=== PATIENT | female | born 1960 | race Caucasian/White ===

== ENCOUNTER 2017-02-15 13:12 | Emergency (ER) | payer OTHER ==
[~2017-02-15] VITALS: Ht 162.5 cm; Wt 77.1 kg
[~2017-02-15 13:12] MED LIST: ADVAIR 250/501 EA INH; ADVAIR 250/501 EA PO; ALBUTEROL2.5 MG/0.5 INH; AMOXICILLIN500 MG PO; ASPIRIN EC325 MG PO; ATARAX25 MG PO; ATENOLOL25 MG PO; ATIVAN1 MG; ATIVAN1 MG PO; B12,B-12,B 12500 MCG PO; CHOLESTEROL FIG1 CAP PO; CITALOPRAM20 MG PO; CLARITIN10 MG PO; COMPAZINE10 MG PO; COREG3.125 MG PO; DONNATAL1 TAB PO; EFFEXOR XR37.5 MG PO; EFFEXOR XR75 MG PO; EFFEXOR75 MG; EPI EZ PEN1 MG/ML IM; FLAGYL500 MG PO; GEMCOR600 MG PO; GEMFIBROZIL600 MG PO; LIPITOR10 MG PO; LIPITOR20 MG PO; LISINOPRIL2.5 MG PO; LISINOPRIL5 MG PO; MOTRIN800 MG PO; NIASPAN500 MG PO; OMEPRAZOLE40 MG PO; OXYGEN NAS; PREDNICOT20 MG PO; PREDNISONE10 MG PO; PREDNISONE20 MG PO; SPIRIVA -- 3018 MCG; SPIRIVA -- 3018 MCG INH; SPIRIVA -- 3018 MCG PO; SPIRIVA18 MCG IH; TRIMOX500 MG PO; VALIUM10 MG PO; VENTOLIN H0.09 MG/AC INH; VERAPAMIL120 MG PO; VIBRAMYCIN100 MG PO; VICODIN 5/500 505 MG PO; VICODIN 500 MG-1 TAB PO; VISTARIL50 MG PO; Vicodin 5/500 505 MG PO; ZANTAC 300300 MG PO; ZETIA10 MG PO; ZITHROMAX Z PA250 MG PO; Zofran4 MG PO
[2017-02-15 13:30] VITALS: BP 122/71
[2017-02-15] MEDS ORDERED: MACROBID100 M1 PO (13:32)
[2017-02-15 13:52] LABS: BILIRUBIN NEGATIVE (NEGATIVE); BLOOD TRACE-LYSED (NEGATIVE); CLARITY SL CLOUDY (CLEAR); COLOR YELLOW (YELLOW); GLUCOSE NEGATIVE (NEGATIVE); KETONE NEGATIVE (NEGATIVE); LEUKO ESTERASE 2+ (NEGATIVE); NITRITE NEGATIVE (NEGATIVE); PROTEIN NEGATIVE (NEGATIVE); SPECIFIC GRAVITY 1.015 (1.005-1.030); UROBILINOGEN 0.2 E.U./dl (0.2-1.0)
[2017-02-15 13:56] LABS: BASO % 0.2 % (0.0-1.0); EOS # 0.1 10*3/uL (0.0-0.4); EOS % 1.7 % (1.0-4.0); HEMATOCRIT 38.5 % (37.0-47.0); HEMOGLOBIN 12.8 g/dl (12.0-16.0); LYMPH # 3.4 10*3/uL (1.3-4.4); LYMPH % 40.1 % (27.0-41.0); MEAN CORPUSCULAR HGB 30.3 pg (27.0-31.0); MEAN CORPUSCULAR HGB CONC 33.2 g/dl (33.0-37.0); MEAN PLATELET VOLUME 10.4 fl (9.6-12.3); MONO # 0.8 10*3/uL (0.1-1.0); MONO % 9.4 % (3.0-9.0); NEUT % 48.1 % (47.0-73.0); PLATELET COUNT AUTOMATED 256 10*3/uL (130-400); RED BLOOD COUNT 4.23 10*6/uL (4.10-5.10); RED CELL DISTRI WIDTH 13.2 % (0-14.5); WHITE BLOOD COUNT 8.4 10*3/uL (4.8-10.8)
[2017-02-15 14:06] LABS: URINE REFLEX COMMENT YES (NO); WBC 21-30 wbc/hpf (0-5)
[2017-02-15 14:13] LABS: ALBUMIN 3.5 gm/dl (3.1-4.5); ALKALINE PHOSPHATASE 171 U/L (45-117); BILIRUBIN, TOTAL 0.3 mg/dl (0.2-1.0); BUN 11 mg/dl (7-24); CARBON DIOXIDE 27 mmol/L (21-32); CHLORIDE 109 mmol/L (98-107); EST GLOM FILT AFRICAN AMERICAN > 60 ml/min; GLUCOSE 109 mg/dL (65-99); POTASSIUM 4.4 mmol/L (3.5-5.1); SGOT/AST 29 IU/L (3-35); SGPT/ALT 19 U/L (12-78); SODIUM 145 mmol/L (136-145); TOTAL PROTEIN 7.6 gm/dL (6.4-8.2)
[2017-02-15 14:16] LABS: TROPONIN I < 0.015 ng/ml (<0.045)
== END 2017-02-15 14:36 | disposition home or self-care (01) ==
LOC: ED 13:12
PROVIDERS: Student in an Organized Health Care Education/Training Program
DX: N39.0 Urinary tract infection, site not specified (principal); I48.91 Unspecified atrial fibrillation; F17.200 Nicotine dependence, unspecified, uncomplicated; Z88.2 Allergy status to sulfonamides; Z88.1 Allergy status to other antibiotic agents; Z79.82 Long term (current) use of aspirin; Z79.899 Other long term (current) drug therapy

== ENCOUNTER 2017-09-07 03:43 | Emergency (ER) | payer OTHER ==
[~2017-09-07] VITALS: Ht 162.5 cm; Wt 99.8 kg
[~2017-09-07 03:43] MED LIST changes: +MACROBID100 M1 PO
[2017-09-07 03:45] VITALS: BP 119/79
[2017-09-07 04:18] LABS: BASO % 0.2 % (0.0-1.0); EOS # 0.2 10*3/uL (0.0-0.4); EOS % 2.1 % (1.0-4.0); HEMATOCRIT 37.5 % (37.0-47.0); HEMOGLOBIN 12.4 g/dl (12.0-16.0); LYMPH # 3.8 10*3/uL (1.3-4.4); LYMPH % 42.2 % (27.0-41.0); MEAN CELL VOLUME 90.1 fl (81.0-99.0); MEAN CORPUSCULAR HGB 29.8 pg (27.0-31.0); MEAN CORPUSCULAR HGB CONC 33.1 g/dl (33.0-37.0); MEAN PLATELET VOLUME 10.7 fl (9.6-12.3); MONO # 0.8 10*3/uL (0.1-1.0); MONO % 8.5 % (3.0-9.0); NEUT # 4.2 10*3/uL (2.3-7.9); NEUT % 46.6 % (47.0-73.0); PLATELET COUNT AUTOMATED 205 10*3/uL (130-400); RED BLOOD COUNT 4.16 10*6/uL (4.10-5.10); WHITE BLOOD COUNT 9.1 10*3/uL (4.8-10.8)
[2017-09-07 04:41] LABS: ALBUMIN 3.1 gm/dl (3.1-4.5); ALKALINE PHOSPHATASE 147 U/L (45-117); BUN 18 mg/dl (7-24); CHLORIDE 110 mmol/L (98-107); CREATININE 0.85 mg/dL (0.55-1.02); POTASSIUM 3.5 mmol/L (3.5-5.1); SGOT/AST 19 IU/L (3-35); SGPT/ALT 15 U/L (12-78); SODIUM 143 mmol/L (136-145); TOTAL PROTEIN 7.1 gm/dL (6.4-8.2)
[2017-09-07 04:43] LABS: TROPONIN I < 0.015 ng/ml (<0.045)
== END 2017-09-07 06:13 | disposition home or self-care (01) ==
LOC: ED 03:43
PROVIDERS: Student in an Organized Health Care Education/Training Program
DX: F41.9 Anxiety disorder, unspecified (principal); Z98.51 Tubal ligation status; Z90.711 Acquired absence of uterus with remaining cervical stump; Z79.82 Long term (current) use of aspirin; Z79.899 Other long term (current) drug therapy; Z88.2 Allergy status to sulfonamides; Z88.1 Allergy status to other antibiotic agents

== ENCOUNTER 2018-06-15 22:44 | Inpatient (IN) | payer OTHER ==
[~2018-06-15] VITALS: Ht 160 cm; Wt 72.2 kg
--- NOTE | ~2018-06-15 | PR ---
[place], [place] PROGRESS NOTE NAME: NAILA AYALA UNIT #: [id number] ROOM: 427 DOCTOR: GAGE VIGIL MD,DOM BIRTHDATE: [birth year] DOS: 06/17/2018 SUBJECTIVE: She continued to show improvement and reduction of respiratory symptoms, ambulating with decreased symptom of shortness of breath, cough and wheezing have been all improving. There were no symptoms of chest pain or fever. OBJECTIVE: VITAL SIGNS: Normal temperature, respiratory rate 17, heart rate 110, mild sinus tachycardia, blood pressure 108/68. Pulse oxygen saturation on 3 liters 95% saturation. HEENT: No acute change. NECK: Supple. CARDIOVASCULAR: S1, S2 audible. LUNGS: The patient was noted without any crackles. Scattered expiratory wheezing. No crackles. ABDOMEN: Soft, nontender. EXTREMITIES: Without any acute edema. IMPRESSION: Progressive resolution of the acute exacerbation of chronic obstructive pulmonary disease/bronchial asthma, and history of chronic hypoxic respiratory failure. PLAN OF TREATMENT: The patient has been reassessed for the need of oxygen supplementation calibration. With the walk test of the patient, she was able to maintain the oxygen supplementation 3 liters nasal cannula with pulse ox at 90% or greater. She will be discharged home to continue use of oxygen. Tapering dose of antibiotics. Continue abstinence of tobacco use will be encouraged. Outpatient followup to be established for the patient after the hospital discharge for a couple of weeks. DOM ALMONTE MD CM:PNTRANS [id number] DOM VIGIL MD 06/25/18 1013 interface
--- NOTE | ~2018-06-15 | CON ---
[place], [place] REPORT OF CONSULTATION NAME: NAILA AYALA UNIT #: [id number] ROOM: 427 DOCTOR: GAGE VIGIL MDDOM BIRTHDATE: [birth year] DOS: 06/16/2018 CONSULTATION REQUESTED BY: Hospitalist service. REASON FOR CONSULTATION: Assessment of current acute exacerbation of chronic obstructive pulmonary disease. HISTORY OF PRESENT ILLNESS: A 57-year-old white female known to me with history of end-stage chronic obstructive pulmonary disease, chronic hypoxic respiratory failure, and chronic obstructive pulmonary disease. The patient presented to the Emergency Room and the patient noted with increased respiratory symptoms, which has been developed for the last 24 hours. The patient admitted symptoms of having increased chest congestion, coughing, wheezing, and shortness of breath. The patient was also noted the pain, which he described across the chest with the current symptom. She felt lightheadedness. She started with symptoms sneezing as well, but denies any sore throat. She came into the Emergency Room where she has been assessed and currently admitted to the hospital for acute exacerbation of chronic obstructive pulmonary disease. The cough has been noted [id number], nonproductive. The wheezing has been noted somewhat decreased this morning of assessment. Shortness of breath occurs with exertion. REVIEW OF SYSTEMS: CONSTITUTIONAL: Fatigue and tiredness noted without any symptoms of fever or chills. EYES: Denies burning, redness, or tenderness. EARS, NOSE, THROAT SYMPTOMS: Denies sore throat, hoarseness, otalgia, postnasal drainage or epistaxis. CARDIOVASCULAR: No anginal pain, edema, or pain in lower extremity. GASTROINTESTINAL: Denies dysphagia, nausea, vomiting, diarrhea, abdominal pain, hematemesis, melena, hematochezia. SKIN: Denies abnormal lesions or rashes. GENITOURINARY SYMPTOMS: Denies urinary incontinence, hematuria, suprapubic pain. MUSCULOSKELETAL: No acute joint pain, redness, or tenderness. CENTRAL NERVOUS SYSTEM: Denies any dizziness, headache, diplopia, syncopal episodes. Remaining systems were reviewed. They were noted all negative. PAST MEDICAL HISTORY: Known with history of: 1. Hypercholesterolemia. 2. Chronic obstructive pulmonary disease. 3. Uncomplicated severe persistent bronchial asthma. 4. Gastroesophageal reflux. 5. Hyperlipidemia. 6. Partial hearing loss. 7. General anxiety disorder. 8. History of chronic hypoxic respiratory failure, use of oxygen supplementation 3 liters with exertion and sleep. [place], [place] REPORT OF CONSULTATION NAME: NAILA AYALA UNIT #: [id number] ROOM: 427 DOCTOR: DOM FAGAN MD BIRTHDATE: [birth year] PAST SURGICAL HISTORY: 1. Noted that include D and C. 2. Partial mastectomy noncancerous. 3. The patient with partial hysterectomy. 4. Cholecystectomy. 5. Right knee arthroscopy. SOCIAL HISTORY: The patient is currently . Lives at home. She has been noted with history of tobacco use with a pack of cigarettes per day that has been discontinued in 04/2018. Denies any alcohol or illicit drug use. FAMILY HISTORY: The patient's father at the age of 65-year-old, unknown medical illnesses. Mother at the age of 63 with complication of sepsis with history of diabetes mellitus. HOME MEDICATIONS: Noted as Ventolin HFA inhaler, aspirin, Lipitor, Coreg, diazepam, Zetia, Breo Ellipta, gemfibrozil, hydroxyzine, lisinopril, niacin, omeprazole, oxygen supplementation 3 liters nasal cannula, and verapamil. ALLERGIES: NOTED ALLERGIES TO THE FLUOROQUINOLONES AND BACTRIM. PHYSICAL EXAMINATION: GENERAL: A 57-year-old female who noted currently awake and alert without any acute distress, sitting on the bed this morning of assessment. Height of 5 feet 3 inches, weight 159 pounds, BMI 28. VITAL SIGNS: Normal temperature since admission, respiratory rate 17-23, heart rate 104-160, mild sinus tachycardia, blood pressure 98/51-120/71. The pulse ox saturation on 3 liters nasal cannula 94% at rest on room air for patient 90% on admission. HEENT: Examination shows head was atraumatic. Eyes nonicterus. NECK: Supple. CARDIOVASCULAR: S1, S2 audible. LUNGS: Noted with decreased breath sounds bilaterally with expiratory wheezing without any crackles. ABDOMEN: Soft and nontender. Bowel sounds present. EXTREMITIES: Without any acute edema. MUSCULOSKELETAL: Without any acute deformities. CENTRAL NERVOUS SYSTEM: The patient's cranial nerves 2-12 intact. LABORATORY DATA: The patient's CBC that was done on 06/15/2018 was noted as normal. The lactic acid noted 1.7 in the emergency room yesterday. CMP in the emergency room, glucose 136. Normal BUN and creatinine and other normal electrolytes and LFTs. Troponin, second and third set today were noted normal. CMP of the patient this morning, glucose 193. Remaining CMP was normal. CBC remains normal. The chest x-ray one-view, which was done in the Emergency Room shows hyperinflation changes without any acute pulmonary infiltration. IMPRESSION: 1. The patient will be currently admitted to the hospital with chronic hypoxic [place], [place] REPORT OF CONSULTATION NAME: NAILA AYALA UNIT #: [id number] ROOM: 427 DOCTOR: GAGE VIGIL MD,DOM BIRTHDATE: [birth year] respiratory failure, acute exacerbation of chronic obstructive pulmonary disease uncomplicated severe, persistent bronchial asthma with possibility of bronchitis, could be viral in origin. 2. The patient with hyperglycemia related to corticosteroids. 3. Recent tobacco cessation after a long time, PLAN OF MANAGEMENT: Continuation of oxygen supplementation, bronchodilators, current dose of corticosteroids 40 mg 8 hours. Bronchodilators administration. Reassess the patient tomorrow morning. No change in other medical management. Empirical antibiotic until the infection is excluded as the bacterial cause. DOM ALMONTE MD CM:CONSTR:REPORT OF CONSULTATION 1450 06/25/18 1012 interface
--- NOTE | ~2018-06-15 | EKG ---
[place], [place] ELECTROCARDIOGRAM REPORT NAME: NAILA AYALA UNIT #: [id number] ROOM: 427 DOCTOR: GUICHO DRAFT REPORT BIRTHDATE: [birth year] [facility] Test Date: 2018-06-15 Test Time: 23:17:25 Pat Name: NAILA AYALA Department: ER Room: 427 Gender: F Shank Skinner: : 1960 Requested By: FRANCISCO JAVIER CHAVEZ Order Number: [id number] Reading MD: Carmina Rodríguez MD Measurements Intervals [place] Rate: 94 P: 84 NV: 138 QRS: 85 QRSD: 96 T: 62 QT: 380 QTc: 476 Interpretive Statements Sinus rhythm Minimal ST elevation, inferior leads Electronically Signed On 06-18-2018 13:26:57 PDT by Carmina Rodríguez MD CM:EKGRPT:ELECTROCARDIOGRAM REPORT [id number] FRANCISCO JAVIER CHAVEZ MD EPIPHANY DRAFT REPORT FRANCISCO JAVIER CHAVEZ MD
--- NOTE | ~2018-06-15 | EKG ---
[place], [place] ELECTROCARDIOGRAM REPORT NAME: NAILA AYALA UNIT #: [id number] ROOM: 427 DOCTOR: GUICHO DRAFT REPORT BIRTHDATE: [birth year] [facility] Test Date: 2018-06-16 Test Time: 01:49:12 Pat Name: NAILA AYALA Department: Room: 427 1 Gender: F Campus Chaplain: EKG.IA : 1960 Requested By: SAM CARTER Order Number: [id number] Reading MD: Carmina Rodríguez MD Measurements Intervals [place] Rate: 96 P: 86 NM: 148 QRS: 80 QRSD: 97 T: 65 QT: 383 QTc: 484 Interpretive Statements Sinus rhythm Baseline wander in lead(s) I,II,aVR,aVL,aVF,V2 Electronically Signed On 06-18-2018 13:28:47 PDT by Carmina Rodríguez MD CM:EKGRPT:ELECTROCARDIOGRAM REPORT [id number] SAM STEWART DRAFT REPORT SAM CARTER DO
--- NOTE | ~2018-06-15 | EKG ---
[place], [place] ELECTROCARDIOGRAM REPORT NAME: NAILA AYALA UNIT #: [id number] ROOM: 427 DOCTOR: GUICHO DRAFT REPORT BIRTHDATE: [birth year] [facility] Test Date: 2018-06-16 Test Time: 04:44:56 Pat Name: NAILA AYALA Department: 4E Room: 427 1 Gender: F Tank Builder Supervisor: Benny Stone : 1960 Requested By: SAM CARTER Order Number: [id number] Reading MD: Carmina Rodríguez MD Measurements Intervals [place] Rate: 104 P: 78 ID: 135 QRS: 83 QRSD: 103 T: 65 QT: 376 QTc: 495 Interpretive Statements Sinus tachycardia Borderline prolonged QT interval Baseline wander in lead(s) V1 Electronically Signed On 06-18-2018 13:28:55 PDT by Carmina Rodríguez MD CM:EKGRPT:ELECTROCARDIOGRAM REPORT [id number] 1328 [facility] STEWART DRAFT REPORT SAM CARTER DO
[2018-06-15 22:44] VITALS: BP 122/63
[2018-06-15] MEDS ORDERED: BREO ELLIPTA 21 EACH INH (23:00)
[2018-06-15 23:26] LABS: BASO % 0.2 % (0.0-1.0); EOS # 0.2 10*3/uL (0.0-0.4); EOS % 1.7 % (1.0-4.0); HEMATOCRIT 39.2 % (37.0-47.0); LYMPH # 3.6 10*3/uL (1.3-4.4); LYMPH % 36.8 % (27.0-41.0); MEAN CELL VOLUME 89.5 fl (81.0-99.0); MEAN CORPUSCULAR HGB 29.7 pg (27.0-31.0); MEAN CORPUSCULAR HGB CONC 33.2 g/dl (33.0-37.0); MEAN PLATELET VOLUME 11.1 fl (9.6-12.3); MONO # 0.7 10*3/uL (0.1-1.0); MONO % 7.2 % (3.0-9.0); NEUT # 5.3 10*3/uL (2.3-7.9); NEUT % 53.9 % (47.0-73.0); PLATELET COUNT AUTOMATED 222 10*3/uL (130-400); RED BLOOD COUNT 4.38 10*6/uL (4.10-5.10); RED CELL DISTRI WIDTH 12.8 % (0-14.5); WHITE BLOOD COUNT 9.9 10*3/uL (4.8-10.8)
[2018-06-15 23:43] LABS: ALBUMIN 3.5 gm/dl (3.1-4.5); ALKALINE PHOSPHATASE 148 U/L (45-117); BUN 11 mg/dl (7-24); CHLORIDE 108 mmol/L (98-107); CREATININE 0.85 mg/dL (0.55-1.02); POTASSIUM 3.7 mmol/L (3.5-5.1); SGOT/AST 24 IU/L (3-35); SGPT/ALT 18 U/L (12-78); SODIUM 143 mmol/L (136-145); TOTAL PROTEIN 7.3 gm/dL (6.4-8.2)
[2018-06-15 23:44] LABS: TROPONIN I < 0.015 ng/ml (<0.045)
[2018-06-15 23:54] LABS: BILIRUBIN NEGATIVE (NEGATIVE); BLOOD NEGATIVE (NEGATIVE); CLARITY CLEAR (CLEAR); COLOR YELLOW (YELLOW); GLUCOSE NEGATIVE (NEGATIVE); KETONE NEGATIVE (NEGATIVE); LEUKO ESTERASE 2+ (NEGATIVE); NITRITE NEGATIVE (NEGATIVE); SPECIFIC GRAVITY <= 1.005 (1.005-1.030); UROBILINOGEN 0.2 E.U./dl (0.2-1.0)
[2018-06-16 00:11] LABS: RBC 0-2 rbc/hpf (0-2); WBC 21-30 wbc/hpf (0-5)
[2018-06-16 01:18] VITALS: BP 120/7; BP 120/71
[2018-06-16 01:35] VITALS: BP 104/70
[2018-06-16 05:54] LABS: BASO % 0.1 % (0.0-1.0); EOS % 0.1 % (1.0-4.0); HEMATOCRIT 38.5 % (37.0-47.0); HEMOGLOBIN 12.7 g/dl (12.0-16.0); LYMPH # 0.9 10*3/uL (1.3-4.4); LYMPH % 12.5 % (27.0-41.0); MEAN CELL VOLUME 91.2 fl (81.0-99.0); MEAN CORPUSCULAR HGB 30.1 pg (27.0-31.0); MEAN PLATELET VOLUME 11.5 fl (9.6-12.3); MONO # 0.1 10*3/uL (0.1-1.0); MONO % 1.3 % (3.0-9.0); NEUT # 6.2 10*3/uL (2.3-7.9); NEUT % 85.4 % (47.0-73.0); PLATELET COUNT AUTOMATED 194 10*3/uL (130-400); RED BLOOD COUNT 4.22 10*6/uL (4.10-5.10); RED CELL DISTRI WIDTH 12.8 % (0-14.5); WHITE BLOOD COUNT 7.2 10*3/uL (4.8-10.8)
[2018-06-16 05:55] LABS: ALBUMIN 3.2 gm/dl (3.1-4.5); ALKALINE PHOSPHATASE 140 U/L (45-117); BUN 10 mg/dl (7-24); CHLORIDE 110 mmol/L (98-107); CHOLESTEROL 132 mg/dL (<200); CREATININE 0.86 mg/dL (0.55-1.02); HDL CHOLESTEROL 36 mg/dl (40-60); LDL CHOLESTEROL 84 mg/dL (9-159); PHOSPHOROUS 3.4 mg/dL (2.5-4.9); SGOT/AST 19 IU/L (3-35); SGPT/ALT 17 U/L (12-78); SODIUM 144 mmol/L (136-145); TOTAL PROTEIN 7.2 gm/dL (6.4-8.2); TRIGLYCERIDES 61 mg/dl (<150); VLDL CHOLESTEROL 12 mg/dL (6-40)
[2018-06-16 06:57] LABS: VITAMIN D, 25-HYDROXY 24.1 ng/mL (30-100)
[2018-06-16 08:18] VITALS: BP 106/66
[2018-06-16 12:00] VITALS: BP 98/51
[2018-06-16 16:00] VITALS: BP 123/62
[2018-06-16 20:00] VITALS: BP 117/58
[2018-06-17] VITALS: BP 116/65
[2018-06-17 08:00] VITALS: BP 107/63
[2018-06-17 08:01] VITALS: BP 108/68
[2018-06-17] MEDS ORDERED: AVPAK AZITHROM250 M1 PO (10:18)
[2018-06-17] MEDS ORDERED: PREDNISONE10 MG PO (10:18)
[2018-06-17] MEDS ORDERED: VITAMIN D-32000 UNIT PO (10:18)
== END 2018-06-17 13:30 | disposition home or self-care (01) | DRG 871 ==
LOC: ED 22:44 → EDHOLD 06-16 00:32 → 4E 06-16 00:37
PROVIDERS: Emergency Medicine Emergency Medical Services; Internal Medicine
DX: A41.9 Sepsis, unspecified organism (principal); J96.21 Acute and chronic respiratory failure with hypoxia; J44.1 Chronic obstructive pulmonary disease with (acute) exacerbation; E11.65 Type 2 diabetes mellitus with hyperglycemia; F41.9 Anxiety disorder, unspecified; E78.5 Hyperlipidemia, unspecified; I10 Essential (primary) hypertension; F17.210 Nicotine dependence, cigarettes, uncomplicated; I70.90 Unspecified atherosclerosis; T38.0X5A Adverse effect of glucocorticoids and synthetic analogues, initial encounter; K21.9 Gastro-esophageal reflux disease without esophagitis; E53.8 Deficiency of other specified B group vitamins; H70.13 Chronic mastoiditis, bilateral; H91.93 Unspecified hearing loss, bilateral; K59.09 Other constipation; Z90.49 Acquired absence of other specified parts of digestive tract; Z90.710 Acquired absence of both cervix and uterus; Z90.10 Acquired absence of unspecified breast and nipple; Z88.2 Allergy status to sulfonamides; Z88.1 Allergy status to other antibiotic agents; Z79.82 Long term (current) use of aspirin; Z79.51 Long term (current) use of inhaled steroids; Z79.899 Other long term (current) drug therapy; Z99.81 Dependence on supplemental oxygen; Z83.3 Family history of diabetes mellitus; Z83.2 Family history of diseases of the blood and blood-forming organs and certain disorders involving the immune mechanism; Y92.89 Other specified places as the place of occurrence of the external cause

== ENCOUNTER 2019-04-09 18:08 | Emergency (ER) | payer OTHER ==
[~2019-04-09] VITALS: Ht 160 cm; Wt 72.6 kg
[~2019-04-09 18:08] MED LIST changes: +ATORVASTATIN CA20 M1 PO; +AVPAK AZITHROM250 M1 PO; +B COMPLEX1 EACH PO; +BREO ELLIPTA 11 EACH PO; +BREO ELLIPTA 21 EACH INH; +GOOD NEIGHBOR L10 MG PO; +LEADER ASPIRIN325 MG PO; +PANTOPRAZOLE SO40 MG PO; +PROVENTIL HFA6.7 GM INH; +SENEXON-S TABL1 EACH PO; +TAB-A-VITE1 EACH PO; +VENTOLIN 02.5 MG/3 M INH; +VITAMIN D-32000 UNIT PO; +VITAMIN D31000 UNIT PO
[2019-04-09 18:09] VITALS: BP 116/72
== END 2019-04-09 21:07 | disposition home or self-care (01) ==
LOC: ED 18:08
DX: S80.12XA Contusion of left lower leg, initial encounter (principal); S80.11XA Contusion of right lower leg, initial encounter; Z87.891 Personal history of nicotine dependence; Z79.899 Other long term (current) drug therapy; Z79.82 Long term (current) use of aspirin; Z88.2 Allergy status to sulfonamides; Z88.1 Allergy status to other antibiotic agents; W01.0XXA Fall on same level from slipping, tripping and stumbling without subsequent striking against object, initial encounter; Y93.89 Activity, other specified; Y92.89 Other specified places as the place of occurrence of the external cause; Y99.8 Other external cause status

== ENCOUNTER → 2019-05-27 | Outpatient (CLI) | payer OTHER | END | disposition home or self-care (01) | LOC: CT 01:08 | DX: H72.93 Unspecified perforation of tympanic membrane, bilateral (principal) ==

== ENCOUNTER 2019-09-21 14:55 | Inpatient (IN) | payer OTHER ==
[~2019-09-21] VITALS: Ht 160 cm; Wt 70.4 kg
[~2019-09-21 14:55] MED LIST changes: -ATORVASTATIN CA20 M1 PO; +LIPITOR40 MG PO
[2019-09-21 15:08] VITALS: BP 104/69
[2019-09-21 16:01] LABS: BASO % 0.3 % (0.0-1.0); EOS # 0.2 10*3/uL (0.0-0.4); EOS % 2.5 % (1.0-4.0); HEMATOCRIT 41.9 % (37.0-47.0); HEMOGLOBIN 13.5 g/dl (12.0-16.0); LYMPH # 2.8 10*3/uL (1.3-4.4); LYMPH % 41.2 % (27.0-41.0); MEAN CELL VOLUME 92.7 fl (81.0-99.0); MEAN CORPUSCULAR HGB 29.9 pg (27.0-31.0); MEAN CORPUSCULAR HGB CONC 32.2 g/dl (33.0-37.0); MEAN PLATELET VOLUME 10.8 fl (9.6-12.3); MONO # 0.6 10*3/uL (0.1-1.0); MONO % 8.8 % (3.0-9.0); NEUT # 3.1 10*3/uL (2.3-7.9); NEUT % 47.1 % (47.0-73.0); PLATELET COUNT AUTOMATED 253 10*3/uL (130-400); RED BLOOD COUNT 4.52 10*6/uL (4.10-5.10); RED CELL DISTRI WIDTH 12.7 % (0-14.5); WHITE BLOOD COUNT 6.7 10*3/uL (4.8-10.8)
[2019-09-21 16:13] LABS: ACT PARTIAL THROMBO TIME 26.8 SECONDS (20.0-32.1)
[2019-09-21 16:30] LABS: ALBUMIN 3.2 gm/dl (3.1-4.5); ALKALINE PHOSPHATASE 121 U/L (45-117); BUN 10 mg/dl (7-24); CHLORIDE 112 mmol/L (98-107); CREATININE 0.75 mg/dL (0.55-1.02); POTASSIUM 3.4 mmol/L (3.5-5.1); SGOT/AST 30 IU/L (3-35); SGPT/ALT 18 U/L (12-78); SODIUM 145 mmol/L (136-145)
[2019-09-21 16:35] LABS: TROPONIN I < 0.015 ng/ml (<0.045)
[2019-09-21 17:45] VITALS: BP 113/70
[2019-09-21 18:30] VITALS: BP 123/65
--- NOTE | 2019-09-21 18:40 | NUR ---
Attempted to call [facility] for med list. Pt states she gave list to in ER. I spoke with Lisa in ER and she states she never saw a list. Catherine buitrago is closed. Reviewed what meds I could with pt but there were several she was unsure if she takes or not, and unsure of doseages of some of meds she knows she takes.
--- NOTE | 2019-09-21 18:41 | NUR ---
[facility] 59, admitted to , under the services of LUCA Pappas DO with a diagnosis of PNEUMONIA. Chief complaint is SOB. Patient arrived via bed from ER. Monitor applied. Initial assessment completed. Vital signs taken and recorded. LUCA PAPPAS DO notified of admission to the unit. Orders received. See assessment for past medical history, medications and allergies. Patient and/or family oriented to unit. [facility]. Clothing/patient valuable form completed. LUCERO AGUIRRE
--- NOTE | 2019-09-21 19:59 | NUR ---
DR. ALMONTE NOTIFIED OF CONSULT FOR PNEUMONIA.
[2019-09-21 20:00] VITALS: BP 118/65
--- NOTE | 2019-09-21 23:09 | NUR ---
Educated patient on flutter. Patient performs independently with good effort.
[2019-09-22] VITALS: BP 112/66
[2019-09-22 07:03] LABS: BASO % 0.1 % (0.0-1.0); HEMATOCRIT 42.3 % (37.0-47.0); HEMOGLOBIN 13.4 g/dl (12.0-16.0); LYMPH # 1.3 10*3/uL (1.3-4.4); LYMPH % 16.7 % (27.0-41.0); MEAN CELL VOLUME 91.2 fl (81.0-99.0); MEAN CORPUSCULAR HGB 28.9 pg (27.0-31.0); MEAN CORPUSCULAR HGB CONC 31.7 g/dl (33.0-37.0); MEAN PLATELET VOLUME 10.9 fl (9.6-12.3); MONO # 0.3 10*3/uL (0.1-1.0); MONO % 3.3 % (3.0-9.0); NEUT # 6.2 10*3/uL (2.3-7.9); NEUT % 79.3 % (47.0-73.0); PLATELET COUNT AUTOMATED 274 10*3/uL (130-400); RED BLOOD COUNT 4.64 10*6/uL (4.10-5.10); RED CELL DISTRI WIDTH 12.3 % (0-14.5); WHITE BLOOD COUNT 7.8 10*3/uL (4.8-10.8)
[2019-09-22 07:14] LABS: ACT PARTIAL THROMBO TIME 26.2 SECONDS (20.0-32.1)
[2019-09-22 07:19] LABS: ALBUMIN 3.3 gm/dl (3.1-4.5); ALKALINE PHOSPHATASE 121 U/L (45-117); BUN 9 mg/dl (7-24); CHLORIDE 110 mmol/L (98-107); CHOLESTEROL 170 mg/dL (<200); CREATININE 0.75 mg/dL (0.55-1.02); HDL CHOLESTEROL 41 mg/dl (40-60); LDL CHOLESTEROL 109 mg/dL (9-159); PHOSPHOROUS 2.7 mg/dL (2.5-4.9); POTASSIUM 3.8 mmol/L (3.5-5.1); SGOT/AST 23 IU/L (3-35); SGPT/ALT 16 U/L (12-78); SODIUM 141 mmol/L (136-145); TOTAL PROTEIN 7.2 gm/dL (6.4-8.2); TRIGLYCERIDES 98 mg/dl (<150); VLDL CHOLESTEROL 20 mg/dL (6-40)
[2019-09-22 07:23] LABS: THYROID STIM HORMONE (HS) 0.195 uIU/ml (0.358-4.75)
--- NOTE | 2019-09-22 07:30 | NUR ---
PT RESTING IN BED. VOICES NO CONCERNS AT THIS TIME. NO S/S OF DISTRESS NOTED. RESPS EASY AND NON LABORED. OXYGEN 3L VIA NASAL CANNULA INTACT. WHITE BOARD UPDATED. CALL LIGHT WITHIN REACH.
[2019-09-22 08:00] VITALS: BP 118/70
[2019-09-22 09:02] LABS: VITAMIN D, 25-HYDROXY 25.2 ng/mL (30-100)
--- NOTE | 2019-09-22 10:15 | NUR ---
[employer]qu[employer] Assistant Department Head in to talk to patient. Patient states lives at HOME with ALONE. There are 2 OUTSIDE steps in the home. Physician: EVANGELIST Pharmacy: [facility] Home health services: NONE Patient's level of ADLs: INDEPENDENT Patient has working utilities: YES DME: OXYGEN, CONCENTRATOR, NEBULIZER Follow-up physician's appointment after d/c: WILL BE MADE BY HOSPITALIST NURSE DIRECTOR ON DISCHARGE Does patient want to access PORTAL?: NO Discharge plan PT LIVES AT HOME ALONE AND IS INDEPENDENT IN HER CARE. DENIES SHE WILL HAVE NEEDS AT DISCHARGE. PLAN IS TO RETURN HOME WHEN MEDICALLY STABLE. WILL CONTINUE TO FOLLOW. STATES SHE WILL HAVE A RIDE HOME.. CHANDU BAKER
--- NOTE | 2019-09-22 11:11 | NUR ---
BLOOD SUGAR 239. COVERAGE GIVEN PER SLIDING SCALE
--- NOTE | 2019-09-22 11:20 | NUR ---
Shift chart check completed.
[2019-09-22 12:00] VITALS: BP 120/68
[2019-09-22] MEDS ORDERED: ZITHROMAX500 MG PO (13:05)
--- NOTE | 2019-09-22 14:39 | NUR ---
Discharge instructions reviewed with patient/family. Patient receptive and verbalizes understanding. Follow-up care arranged. Written instructions given to patient/family. HISSOM,RENALDO The Discharge Plan/Instructions have been completed.
== END 2019-09-22 14:44 | disposition home or self-care (01) | DRG 133 ==
LOC: ED 14:55 → EDHOLD 17:26 → 4E 18:21
PROVIDERS: Internal Medicine; ADMIT Internal Medicine
DX: J96.21 Acute and chronic respiratory failure with hypoxia (principal); J44.1 Chronic obstructive pulmonary disease with (acute) exacerbation; E87.8 Other disorders of electrolyte and fluid balance, not elsewhere classified; K59.09 Other constipation; K21.9 Gastro-esophageal reflux disease without esophagitis; I10 Essential (primary) hypertension; E78.5 Hyperlipidemia, unspecified; E78.00 Pure hypercholesterolemia, unspecified; F41.1 Generalized anxiety disorder; J20.9 Acute bronchitis, unspecified; E11.65 Type 2 diabetes mellitus with hyperglycemia; T38.0X5A Adverse effect of glucocorticoids and synthetic analogues, initial encounter; E87.6 Hypokalemia; I70.90 Unspecified atherosclerosis; Y92.89 Other specified places as the place of occurrence of the external cause; Z87.891 Personal history of nicotine dependence; Z90.49 Acquired absence of other specified parts of digestive tract; Z90.710 Acquired absence of both cervix and uterus; Z90.10 Acquired absence of unspecified breast and nipple; Z83.3 Family history of diabetes mellitus; Z82.0 Family history of epilepsy and other diseases of the nervous system; Z88.1 Allergy status to other antibiotic agents; Z88.2 Allergy status to sulfonamides; Z79.899 Other long term (current) drug therapy; Z79.82 Long term (current) use of aspirin; Z99.81 Dependence on supplemental oxygen

== ENCOUNTER → 2019-11-25 | Outpatient (CLI) | payer OTHER ==
[~2019-11-25] MED LIST changes: +ZITHROMAX500 MG PO
[2019-11-25 10:22] LABS: BASO % 0.4 % (0.0-1.0); EOS # 0.3 10*3/uL (0.0-0.4); EOS % 3.4 % (1.0-4.0); HEMATOCRIT 44.8 % (37.0-47.0); HEMOGLOBIN 14.4 g/dl (12.0-16.0); LYMPH # 2.7 10*3/uL (1.3-4.4); LYMPH % 36.1 % (27.0-41.0); MEAN CORPUSCULAR HGB 29.6 pg (27.0-31.0); MEAN CORPUSCULAR HGB CONC 32.1 g/dl (33.0-37.0); MEAN PLATELET VOLUME 11.5 fl (9.6-12.3); MONO # 0.6 10*3/uL (0.1-1.0); MONO % 7.8 % (3.0-9.0); NEUT # 3.9 10*3/uL (2.3-7.9); PLATELET COUNT AUTOMATED 261 10*3/uL (130-400); RED BLOOD COUNT 4.87 10*6/uL (4.10-5.10); RED CELL DISTRI WIDTH 12.9 % (0-14.5); WHITE BLOOD COUNT 7.6 10*3/uL (4.8-10.8)
[2019-11-25 10:50] LABS: ALBUMIN 3.5 gm/dl (3.1-4.5); BUN 9 mg/dl (7-24); CHLORIDE 107 mmol/L (98-107); GAMMA GLUTAMYL TRANSPEPTIDASE 11 U/L (5-55); POTASSIUM 3.6 mmol/L (3.5-5.1); SODIUM 142 mmol/L (136-145)
[2019-11-25 10:53] LABS: FERRITIN 64.8 ng/mL (10.0-291.0); VITAMIN D, 25-HYDROXY 25.4 ng/mL (30-100)
[2019-11-25 11:03] LABS: ALKALINE PHOSPHATASE 149 U/L (45-117); CHOLESTEROL 141 mg/dL (<200); CPK 45 U/L (26-192); CREATININE 0.83 mg/dL (0.55-1.02); HDL CHOLESTEROL 34 mg/dl (40-60); IRON 77 ug/dL (50-170); LDL CHOLESTEROL 71 mg/dL (9-159); SGOT/AST 19 IU/L (3-35); SGPT/ALT 16 U/L (12-78); THYROID STIM HORMONE (HS) 0.965 uIU/ml (0.358-4.75); TOTAL IRON BINDING CAPACITY 408 ug/dl (250-450); TOTAL PROTEIN 7.6 gm/dL (6.4-8.2); TRIGLYCERIDES 180 mg/dl (<150); VLDL CHOLESTEROL 36 mg/dL (6-40)
[2019-11-25 12:46] LABS: BILIRUBIN NEGATIVE (NEGATIVE); BLOOD NEGATIVE (NEGATIVE); CLARITY SL CLOUDY (CLEAR); COLOR YELLOW (YELLOW); GLUCOSE NEGATIVE (NEGATIVE); KETONE NEGATIVE (NEGATIVE); LEUKO ESTERASE 1+ (NEGATIVE); NITRITE NEGATIVE (NEGATIVE); SPECIFIC GRAVITY 1.015 (1.005-1.030); UROBILINOGEN 0.2 E.U./dl (0.2-1.0)
[2019-11-25 12:49] LABS: BACTERIA 1+
== END | disposition home or self-care (01) ==
LOC: LAB 09:19
PROVIDERS: Family Medicine
DX: R53.83 Other fatigue (principal); R79.89 Other specified abnormal findings of blood chemistry; E78.5 Hyperlipidemia, unspecified; E55.9 Vitamin D deficiency, unspecified

== ENCOUNTER 2020-06-29 16:40 | Emergency (ER) | payer OTHER ==
[~2020-06-29] VITALS: Wt 61.7 kg
[2020-06-29 16:46] VITALS: BP 117/55
[2020-06-29] MEDS ORDERED: PREDNISONE10 MG PO (18:37)
[2020-06-29] MEDS ORDERED: CYCLOBENZAPRINE10 MG PO (18:37)
== END 2020-06-29 18:51 | disposition home or self-care (01) ==
LOC: ED 16:40
DX: M79.604 Pain in right leg (principal); Z88.2 Allergy status to sulfonamides; Z88.1 Allergy status to other antibiotic agents; Z79.899 Other long term (current) drug therapy; Z79.82 Long term (current) use of aspirin; Z87.891 Personal history of nicotine dependence

== ENCOUNTER → 2020-10-02 | Outpatient (CLI) | payer OTHER ==
[~2020-10-02] MED LIST changes: +CYCLOBENZAPRINE10 MG PO
== END | disposition home or self-care (01) ==
LOC: COVID19 13:20
PROVIDERS: ATTEND Family Medicine
DX: Z20.822 Contact with and (suspected) exposure to COVID-19 (principal); R50.9 Fever, unspecified

== ENCOUNTER → 2020-10-21 | Outpatient (CLI) | payer OTHER ==
[2020-10-21 11:10] LABS: BASO % 0.2 % (0.0-1.0); EOS # 0.2 10*3/uL (0.0-0.4); EOS % 2.6 % (1.0-4.0); HEMATOCRIT 38.7 % (37.0-47.0); LYMPH % 36.3 % (27.0-41.0); MEAN CELL VOLUME 91.1 fl (81.0-99.0); MEAN CORPUSCULAR HGB 29.9 pg (27.0-31.0); MEAN CORPUSCULAR HGB CONC 32.8 g/dl (33.0-37.0); MEAN PLATELET VOLUME 10.9 fl (9.6-12.3); MONO # 0.6 10*3/uL (0.1-1.0); MONO % 6.7 % (3.0-9.0); NEUT # 4.5 10*3/uL (2.3-7.9); PLATELET COUNT AUTOMATED 276 10*3/uL (130-400); RED BLOOD COUNT 4.25 10*6/uL (4.10-5.10); RED CELL DISTRI WIDTH 12.2 % (0-14.5); RETICULOCYTE % 1.71 % (0.50-2.50); WHITE BLOOD COUNT 8.4 10*3/uL (4.8-10.8)
[2020-10-21 11:38] LABS: ALBUMIN 3.5 gm/dl (3.1-4.5); ALKALINE PHOSPHATASE 136 U/L (45-117); BUN 11 mg/dl (7-24); CHLORIDE 110 mmol/L (98-107); CHOLESTEROL 156 mg/dL (<200); CPK 44 U/L (26-192); CREATININE 0.85 mg/dL (0.55-1.02); GAMMA GLUTAMYL TRANSPEPTIDASE 12 U/L (5-55); HDL CHOLESTEROL 43 mg/dl (40-60); IRON 71 ug/dL (50-170); LDL CHOLESTEROL 79 mg/dL (9-159); POTASSIUM 4.1 mmol/L (3.5-5.1); SGOT/AST 11 IU/L (3-35); SGPT/ALT 12 U/L (12-78); SODIUM 143 mmol/L (136-145); TOTAL IRON BINDING CAPACITY 320 ug/dl (250-450); TOTAL PROTEIN 7.4 gm/dL (6.4-8.2); TRIGLYCERIDES 172 mg/dl (<150); VLDL CHOLESTEROL 34 mg/dL (6-40)
[2020-10-21 11:44] LABS: THYROID STIM HORMONE (HS) 0.837 uIU/ml (0.358-4.75)
[2020-10-21 12:26] LABS: FERRITIN 122.5 ng/mL (10.0-291.0); VITAMIN D, 25-HYDROXY 23.4 ng/mL (30-100)
[2020-10-21 18:42] LABS: BILIRUBIN Negative (Negative); BLOOD Negative (Negative); CLARITY Clear (Clear); COLOR Yellow (Yellow); GLUCOSE Negative (Negative); KETONE Negative (Negative); LEUKO ESTERASE Negative (Negative); NITRITE Negative (Negative); SPECIFIC GRAVITY 1.015 (1.001-1.030); UROBILINOGEN 0.2 E.U./dl (0.0-1.0)
[2020-10-21 18:52] LABS: BACTERIA TRACE; EPITHELIAL CELLS 0-2; WBC 0-2 wbc/hpf (0-5)
== END | disposition home or self-care (01) ==
LOC: LAB 10:41
PROVIDERS: ATTEND Family Medicine
DX: M18.12 Unilateral primary osteoarthritis of first carpometacarpal joint, left hand (principal); R79.89 Other specified abnormal findings of blood chemistry; R53.83 Other fatigue; R78.5 Finding of other psychotropic drug in blood; E55.9 Vitamin D deficiency, unspecified; Z79.899 Other long term (current) drug therapy

== ENCOUNTER 2021-05-07 09:19 | Emergency (ER) | payer OTHER ==
[~2021-05-07] VITALS: Ht 160 cm; Wt 59.9 kg
[2021-05-07 09:27] VITALS: BP 115/66
[2021-05-07 09:45] LABS: BILIRUBIN Negative (Negative); BLOOD Negative (Negative); CLARITY Clear (Clear); COLOR Yellow (Yellow); GLUCOSE Negative (Negative); KETONE Negative (Negative); LEUKO ESTERASE Negative (Negative); NITRITE Negative (Negative); UROBILINOGEN 0.2 E.U./dl (0.0-1.0)
[2021-05-07 09:53] LABS: RBC 0-2 rbc/hpf (0-2)
[2021-05-07 10:10] LABS: BASO % 0.2 % (0.0-1.0); EOS # 0.1 10*3/uL (0.0-0.4); EOS % 1.2 % (1.0-4.0); HEMATOCRIT 39.3 % (37.0-47.0); LYMPH # 2.4 10*3/uL (1.3-4.4); MEAN CELL VOLUME 90.1 fl (81.0-99.0); MEAN CORPUSCULAR HGB 29.6 pg (27.0-31.0); MEAN CORPUSCULAR HGB CONC 32.8 g/dl (33.0-37.0); MEAN PLATELET VOLUME 10.4 fl (9.6-12.3); MONO # 1.1 10*3/uL (0.1-1.0); MONO % 9.5 % (3.0-9.0); NEUT # 7.7 10*3/uL (2.3-7.9); NEUT % 67.7 % (47.0-73.0); PLATELET COUNT AUTOMATED 269 10*3/uL (130-400); RED BLOOD COUNT 4.36 10*6/uL (4.10-5.10); RED CELL DISTRI WIDTH 12.4 % (0-14.5); WHITE BLOOD COUNT 11.3 10*3/uL (4.8-10.8)
[2021-05-07 10:24] LABS: ALBUMIN 3.6 gm/dl (3.1-4.5); ALKALINE PHOSPHATASE 166 U/L (45-117); BUN 13 mg/dl (7-24); CHLORIDE 110 mmol/L (98-107); CREATININE 0.81 mg/dL (0.55-1.02); POTASSIUM 4.2 mmol/L (3.5-5.1); SGOT/AST 14 IU/L (3-35); SGPT/ALT 13 U/L (12-78); SODIUM 140 mmol/L (136-145); TOTAL PROTEIN 7.9 gm/dL (6.4-8.2)
[2021-05-07] MEDS ORDERED: ZOFRAN4 MG PO (10:51)
== END 2021-05-07 10:54 | disposition home or self-care (01) ==
LOC: ED 09:19
PROVIDERS: Student in an Organized Health Care Education/Training Program
DX: K52.9 Noninfective gastroenteritis and colitis, unspecified (principal); Z88.2 Allergy status to sulfonamides; Z88.1 Allergy status to other antibiotic agents; Z79.899 Other long term (current) drug therapy; Z79.82 Long term (current) use of aspirin; Z87.891 Personal history of nicotine dependence

== ENCOUNTER → 2022-01-19 | Outpatient (CLI) | payer OTHER ==
[~2022-01-19] MED LIST changes: +ZOFRAN4 MG PO
[2022-01-19 11:50] LABS: BILIRUBIN Negative (Negative); BLOOD Negative (Negative); CLARITY Clear (Clear); COLOR Yellow (Yellow); GLUCOSE Negative (Negative); KETONE Negative (Negative); LEUKO ESTERASE Negative (Negative); NITRITE Negative (Negative); PH 5.5 (4.5-8.0); SPECIFIC GRAVITY <= 1.005 (1.001-1.030); UROBILINOGEN 0.2 E.U./dl (0.0-1.0)
[2022-01-19 11:50] LABS: BASO % 0.4 % (0.0-1.0); EOS # 0.3 10*3/uL (0.0-0.4); EOS % 3.1 % (1.0-4.0); HEMATOCRIT 37.7 % (37.0-47.0); LYMPH # 3.5 10*3/uL (1.3-4.4); MEAN CELL VOLUME 89.3 fl (81.0-99.0); MEAN CORPUSCULAR HGB 29.4 pg (27.0-31.0); MEAN CORPUSCULAR HGB CONC 32.9 g/dl (33.0-37.0); MEAN PLATELET VOLUME 10.8 fl (9.6-12.3); MONO # 0.7 10*3/uL (0.1-1.0); MONO % 7.4 % (3.0-9.0); NEUT # 4.7 10*3/uL (2.3-7.9); NEUT % 50.9 % (47.0-73.0); PLATELET COUNT AUTOMATED 290 10*3/uL (130-400); RED BLOOD COUNT 4.22 10*6/uL (4.10-5.10); RED CELL DISTRI WIDTH 12.9 % (0-14.5); RETICULOCYTE % 1.81 % (0.50-2.50); WHITE BLOOD COUNT 9.2 10*3/uL (4.8-10.8)
[2022-01-19 11:59] LABS: EPITHELIAL CELLS 0-2; RBC 0-2 rbc/hpf (0-2)
[2022-01-19 12:07] LABS: ALKALINE PHOSPHATASE 160 U/L (45-117); BUN 10 mg/dl (7-24); CHLORIDE 108 mmol/L (98-107); CHOLESTEROL 137 mg/dL (<200); CREATININE 0.85 mg/dL (0.55-1.02); GAMMA GLUTAMYL TRANSPEPTIDASE 18 U/L (5-55); IRON 75 ug/dL (50-170); LDL CHOLESTEROL 73 mg/dL (9-159); POTASSIUM 4.3 mmol/L (3.5-5.1); SGOT/AST 19 IU/L (3-35); SGPT/ALT 13 U/L (12-78); SODIUM 138 mmol/L (136-145); TOTAL IRON BINDING CAPACITY 330 ug/dl (250-450); TOTAL PROTEIN 7.9 gm/dL (6.4-8.2); TRIGLYCERIDES 147 mg/dl (<150)
[2022-01-19 12:13] LABS: THYROID STIM HORMONE (HS) 0.736 uIU/ml (0.358-4.75)
[2022-01-19 13:23] LABS: FERRITIN 99.3 ng/mL (10.0-291.0)
[2022-01-19 13:51] LABS: VITAMIN D, 25-HYDROXY 23.9 ng/mL (30-100)
== END | disposition home or self-care (01) ==
LOC: LAB 11:21
PROVIDERS: ATTEND Family Medicine
DX: E78.5 Hyperlipidemia, unspecified (principal); E55.9 Vitamin D deficiency, unspecified; R79.89 Other specified abnormal findings of blood chemistry; R53.83 Other fatigue; R74.8 Abnormal levels of other serum enzymes

== ENCOUNTER → 2022-03-10 | Outpatient (CLI) | payer OTHER | END | disposition home or self-care (01) | LOC: MAMMO 11:15 | PROVIDERS: ATTEND Nurse Practitioner Women's Health | DX: Z12.31 Encounter for screening mammogram for malignant neoplasm of breast (principal); Z80.3 Family history of malignant neoplasm of breast ==

== ENCOUNTER → 2022-12-15 | Outpatient (CLI) | payer OTHER ==
[2022-12-15 12:43] LABS: BASO % 0.5 % (0.0-1.0); EOS # 0.3 10*3/uL (0.0-0.4); EOS % 3.8 % (1.0-4.0); HEMATOCRIT 41.1 % (37.0-47.0); LYMPH # 3.6 10*3/uL (1.3-4.4); LYMPH % 41.5 % (27.0-41.0); MEAN CELL VOLUME 92.2 fl (81.0-99.0); MEAN CORPUSCULAR HGB 29.1 pg (27.0-31.0); MEAN CORPUSCULAR HGB CONC 31.6 g/dl (33.0-37.0); MONO # 0.6 10*3/uL (0.1-1.0); NEUT # 4.1 10*3/uL (2.3-7.9); PLATELET COUNT AUTOMATED 298 10*3/uL (130-400); RED BLOOD COUNT 4.46 10*6/uL (4.10-5.10); RED CELL DISTRI WIDTH 12.6 % (0-14.5); RETICULOCYTE % 1.59 % (0.50-2.50); WHITE BLOOD COUNT 8.7 10*3/uL (4.8-10.8)
[2022-12-15 12:51] LABS: BILIRUBIN Negative (Negative); BLOOD Negative (Negative); CLARITY Clear (Clear); COLOR Yellow (Yellow); GLUCOSE Negative (Negative); KETONE Negative (Negative); LEUKO ESTERASE Trace (Negative); NITRITE Negative (Negative); SPECIFIC GRAVITY <= 1.005 (1.001-1.030); UROBILINOGEN 0.2 E.U./dl (0.0-1.0)
[2022-12-15 13:08] LABS: BACTERIA TRACE; WBC 0-2 wbc/hpf (0-5)
[2022-12-15 13:16] LABS: ALKALINE PHOSPHATASE 153 U/L (46-116); BUN 11 mg/dl (9-23); CHLORIDE 109 mmol/L (98-107); CHOLESTEROL 181 mg/dL (<200); GAMMA GLUTAMYL TRANSPEPTIDASE 19 U/L (0-73); LDL CHOLESTEROL 111 mg/dL (9-159); POTASSIUM 3.8 mmol/L (3.4-5.1); T3 UPTAKE 17.8 % (22.4-36.7); THYROID STIM HORMONE (HS) 0.709 uIU/ml (0.550-4.780); THYROXINE (T4) TOTAL 9.1 ug/dl (4.5-10.9); TRIGLYCERIDES 150 mg/dl (<150)
[2022-12-15 13:18] LABS: SGPT/ALT < 7 U/L (10-49)
== END ==
LOC: LAB 11:56
PROVIDERS: ATTEND Family Medicine
DX: E78.5 Hyperlipidemia, unspecified (principal); E55.9 Vitamin D deficiency, unspecified; R53.83 Other fatigue; R79.89 Other specified abnormal findings of blood chemistry; R74.8 Abnormal levels of other serum enzymes

== ENCOUNTER → 2023-07-06 | Outpatient (CLI) | payer OTHER ==
[2023-07-06 09:03] LABS: BASO % 0.4 % (0.0-1.0); BILIRUBIN Negative (Negative); BLOOD Negative (Negative); CLARITY Clear (Clear); COLOR Yellow (Yellow); EOS # 0.3 10*3/uL (0.0-0.4); GLUCOSE Negative (Negative); HEMATOCRIT 40.9 % (37.0-47.0); KETONE Negative (Negative); LEUKO ESTERASE 1+ (Negative); LYMPH # 3.3 10*3/uL (1.3-4.4); LYMPH % 35.5 % (27.0-41.0); MEAN CELL VOLUME 91.7 fl (81.0-99.0); MEAN CORPUSCULAR HGB 29.4 pg (27.0-31.0); MEAN PLATELET VOLUME 10.6 fl (9.6-12.3); MONO # 0.7 10*3/uL (0.1-1.0); MONO % 7.7 % (3.0-9.0); NEUT # 4.9 10*3/uL (2.3-7.9); NEUT % 53.2 % (47.0-73.0); NITRITE Negative (Negative); PH 5.5 (4.5-8.0); PLATELET COUNT AUTOMATED 310 10*3/uL (130-400); RED BLOOD COUNT 4.46 10*6/uL (4.10-5.10); RETICULOCYTE % 1.81 % (0.50-2.50); SPECIFIC GRAVITY 1.015 (1.001-1.030); UROBILINOGEN 0.2 E.U./dl (0.0-1.0); WHITE BLOOD COUNT 9.2 10*3/uL (4.8-10.8)
[2023-07-06 09:27] LABS: ALKALINE PHOSPHATASE 163 U/L (46-116); BUN 11 mg/dl (9-23); CHLORIDE 109 mmol/L (98-107); CHOLESTEROL 164 mg/dL (<200); GAMMA GLUTAMYL TRANSPEPTIDASE 19 U/L (0-73); LDL CHOLESTEROL 99 mg/dL (9-159); T3 UPTAKE 18.3 % (22.4-36.7); THYROXINE (T4) TOTAL 10.3 ug/dl (4.5-10.9); TRIGLYCERIDES 138 mg/dl (<150)
[2023-07-06 09:28] LABS: SGPT/ALT < 7 U/L (5-49)
[2023-07-06 09:33] LABS: VITAMIN D, 25-HYDROXY 41.9 ng/mL (30-100)
[2023-07-06 10:57] LABS: BACTERIA 1+; MUCOUS 2+
== END | disposition home or self-care (01) ==
LOC: LAB 08:29
PROVIDERS: Family Medicine; ATTEND Internal Medicine Cardiovascular Disease
DX: E78.5 Hyperlipidemia, unspecified (principal); E55.9 Vitamin D deficiency, unspecified; R79.89 Other specified abnormal findings of blood chemistry; R74.8 Abnormal levels of other serum enzymes; R53.83 Other fatigue

== ENCOUNTER 2023-08-04 13:38 | Emergency (ER) | payer OTHER ==
[~2023-08-04] VITALS: Ht 160 cm; Wt 57.2 kg
[2023-08-04 14:09] VITALS: BP 98/60
[2023-08-04] MEDS ORDERED: AMOX-CLAV 875-1 EACH PO (17:21)
== END 2023-08-04 17:31 | disposition home or self-care (01) ==
LOC: ED 13:38
DX: H66.91 Otitis media, unspecified, right ear (principal); F32.A Depression, unspecified; K21.9 Gastro-esophageal reflux disease without esophagitis; J44.9 Chronic obstructive pulmonary disease, unspecified; I10 Essential (primary) hypertension; G43.909 Migraine, unspecified, not intractable, without status migrainosus; E78.00 Pure hypercholesterolemia, unspecified; Z88.2 Allergy status to sulfonamides; Z88.8 Allergy status to other drugs, medicaments and biological substances; Z98.890 Other specified postprocedural states; Z90.49 Acquired absence of other specified parts of digestive tract; Z90.711 Acquired absence of uterus with remaining cervical stump; Z98.51 Tubal ligation status; Z87.891 Personal history of nicotine dependence; Z20.822 Contact with and (suspected) exposure to COVID-19

== ENCOUNTER → 2024-07-18 | Outpatient (CLI) | payer OTHER ==
[~2024-07-18] MED LIST changes: +AMOX-CLAV 875-1 EACH PO
[2024-07-18 09:46] LABS: BASO % 0.5 % (0.0-1.0); EOS # 0.4 10*3/uL (0.0-0.4); EOS % 4.6 % (1.0-4.0); HEMATOCRIT 39.1 % (37.0-47.0); MEAN CELL VOLUME 91.1 fl (81.0-99.0); MEAN CORPUSCULAR HGB 28.9 pg (27.0-31.0); MEAN CORPUSCULAR HGB CONC 31.7 g/dl (33.0-37.0); MEAN PLATELET VOLUME 11.1 fl (9.6-12.3); MONO # 0.6 10*3/uL (0.1-1.0); MONO % 6.7 % (3.0-9.0); NEUT # 4.4 10*3/uL (2.3-7.9); NEUT % 52.2 % (47.0-73.0); PLATELET COUNT AUTOMATED 255 10*3/uL (130-400); RED BLOOD COUNT 4.29 10*6/uL (4.10-5.10); RED CELL DISTRI WIDTH 13.2 % (0-14.5); RETICULOCYTE % 1.68 % (0.50-2.50); WHITE BLOOD COUNT 8.5 10*3/uL (4.8-10.8)
[2024-07-18 10:12] LABS: ALKALINE PHOSPHATASE 154 U/L (46-116); BUN 10 mg/dl (9-23); CHLORIDE 109 mmol/L (98-107); CHOLESTEROL 156 mg/dL (<200); GAMMA GLUTAMYL TRANSPEPTIDASE 17 U/L (0-73); LDL CHOLESTEROL 86 mg/dL (9-159); POTASSIUM 4.1 mmol/L (3.4-5.1); T3 UPTAKE 24.9 % (22.4-36.7); THYROXINE (T4) TOTAL 8.1 ug/dl (4.5-10.9); TOTAL PROTEIN 7.9 gm/dL (6.0-8.0); TRIGLYCERIDES 171 mg/dl (<150)
[2024-07-18 10:13] LABS: SGPT/ALT < 7 U/L (5-49)
[2024-07-18 10:22] LABS: VITAMIN D, 25-HYDROXY 42.7 ng/mL (30-100)
[2024-07-18 10:36] LABS: BILIRUBIN Negative (Negative); BLOOD Negative (Negative); CLARITY Clear (Clear); COLOR Yellow (Yellow); GLUCOSE Negative (Negative); KETONE Negative (Negative); LEUKO ESTERASE Negative (Negative); NITRITE Negative (Negative); SPECIFIC GRAVITY <= 1.005 (1.001-1.030); UROBILINOGEN 0.2 E.U./dl (0.0-1.0)
[2024-07-18 10:51] LABS: RBC 0-2 rbc/hpf (0-2); WBC 0-2 wbc/hpf (0-5)
== END | disposition home or self-care (01) ==
LOC: LAB 09:05 → CT 10:00
PROVIDERS: Family Medicine; ATTEND Internal Medicine Critical Care Medicine
DX: Z12.2 Encounter for screening for malignant neoplasm of respiratory organs (principal); I25.10 Atherosclerotic heart disease of native coronary artery without angina pectoris; J44.9 Chronic obstructive pulmonary disease, unspecified; R91.1 Solitary pulmonary nodule; J45.50 Severe persistent asthma, uncomplicated; J30.89 Other allergic rhinitis; R06.83 Snoring; Z87.891 Personal history of nicotine dependence

== ENCOUNTER → 2024-11-04 | Outpatient (CLI) | payer OTHER | END | disposition home or self-care (01) | LOC: CT 09:45 | PROVIDERS: ATTEND Internal Medicine Critical Care Medicine | DX: R91.1 Solitary pulmonary nodule (principal); J43.9 Emphysema, unspecified; J45.50 Severe persistent asthma, uncomplicated; J30.89 Other allergic rhinitis; R06.83 Snoring; I25.10 Atherosclerotic heart disease of native coronary artery without angina pectoris; Z87.891 Personal history of nicotine dependence; Z90.49 Acquired absence of other specified parts of digestive tract ==

== ENCOUNTER → 2024-12-25 | Outpatient (CLI) | payer OTHER ==
[2024-12-25 09:15] LABS: BASO % 0.3 % (0.0-1.0); EOS # 0.2 10*3/uL (0.0-0.4); EOS % 2.6 % (1.0-4.0); HEMATOCRIT 38.7 % (37.0-47.0); MEAN CELL VOLUME 91.7 fl (81.0-99.0); MEAN CORPUSCULAR HGB 29.1 pg (27.0-31.0); MEAN CORPUSCULAR HGB CONC 31.8 g/dl (33.0-37.0); MEAN PLATELET VOLUME 10.8 fl (9.6-12.3); MONO # 0.6 10*3/uL (0.1-1.0); MONO % 7.7 % (3.0-9.0); NEUT # 3.9 10*3/uL (2.3-7.9); NEUT % 51.4 % (47.0-73.0); PLATELET COUNT AUTOMATED 298 10*3/uL (130-400); RED BLOOD COUNT 4.22 10*6/uL (4.10-5.10); RED CELL DISTRI WIDTH 13.2 % (0-14.5); WHITE BLOOD COUNT 7.6 10*3/uL (4.8-10.8)
[2024-12-25 09:50] LABS: ALKALINE PHOSPHATASE 133 U/L (46-116); BUN 13 mg/dl (9-23); CHLORIDE 109 mmol/L (98-107); POTASSIUM 3.9 mmol/L (3.4-5.1); TOTAL PROTEIN 7.8 gm/dL (6.0-8.0)
[2024-12-25 09:51] LABS: SGPT/ALT < 7 U/L (5-49)
== END | disposition home or self-care (01) ==
LOC: LAB 08:53
PROVIDERS: ATTEND Physician Assistant
DX: I49.1 Atrial premature depolarization (principal); I51.7 Cardiomegaly; F33.1 Major depressive disorder, recurrent, moderate

== ENCOUNTER 2025-05-29 10:19 | Emergency (ER) | payer OTHER ==
[~2025-05-29] VITALS: Ht 160 cm; Wt 54.9 kg
[2025-05-29 10:33] VITALS: BP 105/71
[2025-05-29] MEDS ORDERED: SODIUM CHLORIDE 0.9% 1,000 ML IV ONE (11:10)
[2025-05-29 11:30] LABS: BASO # 0.0 10*3/uL (0.0-0.1); BASO % 0.4 % (0.0-1.0); EOS # 0.2 10*3/uL (0.0-0.4); EOS % 2.6 % (1.0-4.0); MEAN CELL VOLUME 91.0 fl (81.0-99.0); MEAN CORPUSCULAR HGB 29.1 pg (27.0-31.0); MEAN PLATELET VOLUME 11.3 fl (9.6-12.3); MONO # 0.6 10*3/uL (0.1-1.0); MONO % 7.8 % (3.0-9.0); NEUT # 4.3 10*3/uL (2.3-7.9); NEUT % 52.9 % (47.0-73.0); NUCLEATED RED BLOOD CELL 0.0 % (0.0-0.0); NUCLEATED RED BLOOD CELL 0.0 10*3/uL (0.0-0.0); PLATELET COUNT AUTOMATED 184 10*3/uL (130-400); RED CELL DISTRI WIDTH 13.2 % (0-14.5)
[2025-05-29 11:52] LABS: BUN 13 mg/dl (9-23)
[2025-05-29 11:58] LABS: SGPT/ALT < 7 U/L (5-49)
[2025-05-29 12:58] LABS: BILIRUBIN Negative (Negative); BLOOD Negative (Negative); CLARITY Clear (Clear); COLOR Yellow (Yellow); KETONE Negative (Negative); LEUKO ESTERASE Negative (Negative); NITRITE Negative (Negative); PH 6.5 (4.5-8.0); SPECIFIC GRAVITY <= 1.005 (1.001-1.030); UROBILINOGEN 0.2 E.U./dl (0.0-1.0)
[2025-05-29 13:15] LABS: BACTERIA TRACE
== END 2025-05-29 14:30 | disposition home or self-care (01) ==
LOC: ED 10:19
PROVIDERS: Emergency Medicine
DX: E86.0 Dehydration (principal); Z88.2 Allergy status to sulfonamides; Z88.1 Allergy status to other antibiotic agents; Z79.899 Other long term (current) drug therapy; Z79.82 Long term (current) use of aspirin; Z90.710 Acquired absence of both cervix and uterus; Z90.49 Acquired absence of other specified parts of digestive tract; Z87.891 Personal history of nicotine dependence